=== PATIENT | female | born 1970 | race Caucasian/White ===

== ENCOUNTER 2020-11-22 13:22 | Inpatient (IN) ==
[2020-11-22] MEDS ORDERED: 0.9 % Sodium Chloride 1,000 ML IVC SCH (14:00)
[2020-11-22] MEDS ORDERED: Dexmedetomidine HCl 400 MCG/100 ML MLS IVC ONE (14:01)
[2020-11-22] MEDS ORDERED: Acetaminophen IV 1,000 MG/100 ML BAG IVPB ONE (14:01)
[2020-11-22] MEDS ORDERED: *HR* Propofol 200 MG/20 ML VIAL IVP ONE (14:03)
[2020-11-22] MEDS ORDERED: *HR* FentaNYL (PF) 100 MCG/2 ML VIAL ONE (14:03)
[2020-11-22] MEDS ORDERED: *HR* Midazolam HCl 2 MG/2 ML VIAL ONE (14:03)
[2020-11-22] MEDS ORDERED: Lidocaine -MPF 2% 5 ML VIAL ONE (14:05)
[2020-11-22] MEDS ORDERED: Lidocaine HCL 4 ML Topical Solution (Laryng-O-Jet Kit Sterile Pak) TP ONE (14:05)
[2020-11-22] MEDS ORDERED: *HR* Rocuronium Bromide 50 MG/5 ML VIAL ONE (14:05)
[2020-11-22] MEDS ORDERED: *HR* HYDROcodone/Acet 5/325 mg TABLET PO ONE (14:14)
[2020-11-22] MEDS ORDERED: Ringers Solution, Lactated 1,000 ML IVC SCH (14:15)
[2020-11-22] MEDS ORDERED: Ondansetron 4 MG/2 ML VIAL ONE (14:44)
[2020-11-22] MEDS ORDERED: EPHEDrine 50 MG/ML VIAL ONE (14:51)
[2020-11-22] MEDS ORDERED: ceFAZolin 1,000 MG, Sodium Chloride IRRigation 1,000 ML IR ONE (15:00)
[2020-11-22] MEDS ORDERED: Vancomycin 1,000 MG VIAL ONE (15:57)
[2020-11-22] MEDS ORDERED: Ketorolac 30 MG/ML VIAL ONE (16:12)
[2020-11-22] MEDS ORDERED: Sugammadex Sodium 200 MG/2 ML VIAL IV ONE (16:13)
[2020-11-22] MEDS ORDERED: *HR* Magnesium Sulfate 1 GM/2 ML VIAL ONE (16:19)
[2020-11-22] MEDS ORDERED: *HR* HYDROMORPHONE 2 MG/ML VIAL ONE (16:33)
[2020-11-22] MEDS ORDERED: *HR* HYDROmorphone (PF) 1 MG/ML SYRINGE ONE ×2 (16:59→17:08)
[2020-11-22] MEDS ORDERED: Ondansetron 4 MG/2 ML VIAL IVP PRN (17:00)
[2020-11-22] MEDS ORDERED: Ropivacaine/PF 0.5% 30 ML VIAL ONE (17:14)
[2020-11-22] MEDS: *HR* HYDROmorphone PF 0.5 MG/0.5 ML SYRINGE IVP PRN ×4 (17:15→17:47)
[2020-11-22] MEDS ORDERED: Ondansetron ODT 4 MG TAB.RAPDIS SL PRN (19:12)
[2020-11-22] MEDS ORDERED: Acetaminophen 325 MG TABLET PO PRN (19:12)
[2020-11-22] MEDS: Gabapentin 300 MG CAPSULE PO SCH (19:47)
[2020-11-22] MEDS: 0.9 % Sodium Chloride 1,000 ML IVC SCH (20:12)
[2020-11-23] MEDS: *HR* HYDROcodone/Acet 5/325 mg TABLET PO PRN ×3 (02:47→20:32)
[2020-11-23] MEDS: Insulin LISPRO 300 UNITS/3 ML VIAL SUBQ SCH ×5 (03:23→20:33)
[2020-11-23 06:33] LABS: Basophils % 0.1 %; Eosinophils % 0.1 %; Hematocrit 34.8 % (35.3-44.9); Hemoglobin 11.1 g/dL (11.5-15.4); Immature Granulocytes % 0.3 % (0-4); Lymphocytes # 0.9 K/mcL (0.6-4.6); Lymphocytes % 12.9 %; Mean Corpuscular HGB Conc 31.9 g/dL (31.6-35.5); Mean Corpuscular Hemoglobin 29.6 pg (28.0-33.3); Mean Corpuscular Volume 92.8 fL (83.0-100.0); Mean Platelet Volume 8.9 fL (9.4-12.4); Monocytes # 0.4 K/mcL (0.0-1.3); Monocytes % 5.4 %; Neutrophils # 5.7 K/mcL (1.6-8.9); Platelet Count 351 K/mcL (140-400); Red Blood Count 3.75 M/mcL (3.82-4.97); Red Cell Distribution Width 13.5 % (11.5-14.5); Segmented Neutrophils % 81.2 %
[2020-11-23 06:43] LABS: BUN/Creatinine Ratio 24 (6-26); Blood Urea Nitrogen 18 mg/dL (6-20); Calcium 8.9 mg/dL (8.6-10.3); Carbon Dioxide 23 mEq/L (23-29); Chloride 103 mEq/L (98-107); Glucose 338 mg/dL (70-105); Osmolality,Calculated 295 (280-300); Potassium 4.6 mEq/L (3.5-5.1); Sodium 135 mEq/L (136-145); eGFR For African Americans > 60 (> 60); eGFR For Non-African Americans > 60 (> 60)
[2020-11-23] MEDS ORDERED: NON-FORMULARY MEDICATION 1 EACH EACH (Insulin Aspart Prot/Insuln Asp [Novolog Mix 70-30 Vi SUBQ SCH (09:00)
[2020-11-23] MEDS: *HR* HYDROmorphone (PF) 1 MG/ML SYRINGE IVP PRN ×5 (12:14→22:15)
[2020-11-23] MEDS: 0.9 % Sodium Chloride 1,000 ML IVC SCH (15:14)
[2020-11-23] MEDS: Gabapentin 300 MG CAPSULE PO SCH (20:29)
[2020-11-24] MEDS: *HR* HYDROmorphone (PF) 1 MG/ML SYRINGE IVP PRN ×7 (00:38→15:52)
[2020-11-24] MEDS: *HR* HYDROcodone/Acet 5/325 mg TABLET PO PRN ×2 (02:35→07:53)
[2020-11-24] MEDS: Insulin LISPRO 300 UNITS/3 ML VIAL SUBQ SCH ×4 (07:54→20:53)
[2020-11-24] MEDS ORDERED: Naloxone 0.4 MG/ML INJ IVP PRN (16:28)
[2020-11-24] MEDS ORDERED: *HR* OxyCODONE/APAP 7.5/325 TABLET PO PRN (16:28)
[2020-11-24] MEDS: Ketorolac 15 MG/ML VIAL IVP SCH (17:32)
[2020-11-24] MEDS: *HR* OxyCODONE/APAP 10/325 TABLET PO PRN ×2 (18:25→23:04)
[2020-11-24] MEDS: Gabapentin 300 MG CAPSULE PO SCH (20:51)
[2020-11-25] MEDS: Ketorolac 15 MG/ML VIAL IVP SCH ×5 (00:23→22:29)
[2020-11-25] MEDS: *HR* OxyCODONE/APAP 10/325 TABLET PO PRN ×5 (04:17→21:15)
[2020-11-25] MEDS: Insulin LISPRO 300 UNITS/3 ML VIAL SUBQ SCH ×4 (08:09→20:12)
[2020-11-25] MEDS: *HR* OxyCODONE/APAP 5/325 TABLET PO PRN (20:10)
[2020-11-25] MEDS: Gabapentin 300 MG CAPSULE PO SCH (20:10)
[2020-11-26] MEDS: Ketorolac 15 MG/ML VIAL IVP SCH ×2 (05:01→11:39)
[2020-11-26] MEDS: Insulin LISPRO 300 UNITS/3 ML VIAL SUBQ SCH ×2 (07:51→11:39)
[2020-11-26] MEDS: *HR* OxyCODONE/APAP 5/325 TABLET PO PRN (08:07)
[2020-11-26] MEDS: *HR* OxyCODONE/APAP 10/325 TABLET PO PRN ×2 (10:07→16:26)
[2020-11-26 14:16] VITALS: BP 128/82; PULSE 100; TEMP 98.5; O2SAT 99
== END 2020-11-26 17:27 | disposition home health service (06) | DRG 42 ==
LOC: SAMDAY 13:22 → 3ANU 19:07
PROVIDERS: ADMIT Surgery Vascular Surgery; ATTEND Surgery Vascular Surgery